=== PATIENT | male | born 1985 | race Caucasian/White ===

== ENCOUNTER 2017-06-01 12:05 | Emergency (ER) | payer SELFPAY ==
[2017-06-01] MEDS ORDERED: Famotidine 20 MG/2 ML SDV IVPUSH ONE (12:12)
[2017-06-01] MEDS ORDERED: Sodium Chloride 0.9% 10 ML Syringe FLUSH PRN (12:12)
[2017-06-01] MEDS ORDERED: Sodium Chloride 0.9% 1,000 ML IV ONE (12:12)
[2017-06-01] MEDS ORDERED: Sodium Chloride 0.9% 2.5 ML Syringe FLUSH PRN (12:12)
[2017-06-01] MEDS ORDERED: Aspirin 81 MG Tab.Chew PO ONE (12:12)
[2017-06-01] MEDS ORDERED: Nitroglycerin 0.4 MG Tab.SL SL ONE (12:12)
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
--- NOTE | 2017-06-01 13:01 | CR ---
EXAMINATION: Portable chest radiograph. HISTORY: Pain. FINDINGS: The trachea is midline. The cardiomediastinal silhouette is within normal limits. No pulmonary infilt rates, effusions or pneumothorax. Osseous structures appear unremarkable. IMPRESSION: No acute cardiopulmonary process.
[2017-06-01 13:02] LABS: CHLORIDE,CL 104 mmol/L (98-110); SODIUM,NA 138 mmol/L (136-146)
[2017-06-01] MEDS ORDERED: Nitroglycerin 0.4 MG Tab.SL SL PRN (13:09)
[2017-06-01 14:31] VITALS: BP 128/73
== END 2017-06-01 14:28 | disposition home or self-care (01) ==
LOC: MW.ED 12:05
DX: R07.89 Other chest pain (principal)
CPT/HCPCS: 36415; 71010; 80053; 84484; 85025; 93005; 96361; 96374; 99285; A9270; J7040; 99283

== ENCOUNTER 2018-03-04 14:25 | Emergency (ER) | payer SELFPAY ==
--- NOTE | 2018-03-04 14:46 | EDM.PDOC ---
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 Past medical history: As per history of present illness and as reviewed below otherwise noncontributory. Surgical history: As per history of present illness and as reviewed below otherwise noncontributory. Social history: No reported history of drug or alcohol abuse. Family history: As per history of present illness and as reviewed below otherwise noncontributory. Physical exam: Alert and oriented male answering questions appropriately in full sentences without any shortness of breath. Nontoxic in appearance. HEENT: Atraumatic, normocehpalic, pupils reactive, negative for conjunctival pallor or scleral icterus, mucous membranes moist, throat clear, neck supple, nontender, trachea midline. Tonsils are erythematous and large Lungs: Clear to auscultation, breath sounds equal bilaterally, chest non tender. Heart: S1S2, regular, negative for clicks, rubs, or JVD. Abdomen: Soft, nondistended, nontender. Negative for masses or hepatossplenmegaly. Negative for costovertebral tenderness. Pelvis: Stable nontender. Genitourinary: Deferred. Rectal: Deferred Extremities: Atraumatic, negative for cords or calf pain. Neurovascular unremarkable. Neuro: Awake, alert, oriented. Cranial nerves II through XII unremarkable. Cerebellum unremarkable. Motor and sensory unremarkable throughout. Exam nonfocal. Discussed the negative x-ray CBC CMP strep have been reviewed. he was asking why he's been coughing for the last 4 years. Offer of Tessalon Perles and Medrol Dosepak was denied by patient. He is upset that no reason was found for his cough. Patient states that he will go to [place] to be seen Diagnostics: []Chest x-ray CBC CMP strep Therapeutics: []duoneb Impression: []Cough Shortness breath Plan: []The discharge Definitive disposition and diagnosis as appropriate pending reevaluation and review of above. Onset: Gradual Duration: Chronic Location: Reports: Neck, Chest Quality: Reports: Ache Severity: Moderate Improves with: Reports: None Worsens with: Reports: None Middle Back Pain Score (Numeric/FACES): 4 - Related Data Allergies Allergy/AdvReac Type Severity Reaction Status Date / Time No Known Allergies Allergy Verified 03/04/18 14:47 Home Meds: Home Meds . [No Known Home Meds] 12/05/14 [History] Past Medical History - Past Health History Medical/Surgical History: Denies Medical/Surgical History Other Genitourinary History: Kidney failure Other Oncologic History: Breast Biopsy Social & Family History - Family History Family Medical History: Noncontributory ED ROS GENERAL - Review of Systems Review Of Systems: ROS reveals no pertinent complaints other than HPI. ED EXAM, GENERAL - Physical Exam Exam: See Below (see dictation) Course - Vital Signs Last Recorded V/S: Last Vital Signs Temp 36.3 C 03/04/18 14:43 Pulse 99 03/04/18 14:43 Resp 18 03/04/18 14:43 BP 148/96 H 03/04/18 14:43 Pulse Ox 97 03/04/18 14:43 - Orders/Labs/Meds Orders: Active Orders 24 hr Category Date Time Status RT Aerosol Therapy [RC] ASDIRECTED Care 03/04/18 14:56 Active Chest 2V [CR] Stat Exams 03/04/18 14:46 Taken Labs: Laboratory Tests 03/04/18 03/04/18 Range/Units 14:55 14:55 WBC 7.21 (4.0-11.0) K/uL RBC 5.24 (4.50-5.90) M/uL Hgb 16.3 (13.0-17.0) g/dL Hct 46.3 (38.0-50.0) % MCV 88.4 (80.0-98.0) fL MCH 31.1 (27.0-32.0) pg MCHC 35.2 (31.0-37.0) g/dL RDW Std Deviation 40.2 (28.0-62.0) fl RDW Coeff of [place] 13 (11.0-15.0) % Plt Count 298 (150-400) K/uL MPV 10.00 (7.40-12.00) fL Neut % (Auto) 56.0 (48.0-80.0) % Lymph % (Auto) 27.5 (16.0-40.0) % [place] % (Auto) 10.5 (0.0-15.0) % Eos % (Auto) 4.9 (0.0-7.0) % Baso % (Auto) 1.1 (0.0-1.5) % Neut # (Auto) 4.0 (1.4-5.7) K/uL Lymph # (Auto) 2.0 (0.6-2.4) K/uL [place] # (Auto) 0.8 (0.0-0.8) K/uL Eos # (Auto) 0.4 (0.0-0.7) K/uL Baso # (Auto) 0.1 (0.0-0.1) K/uL Nucleated RBC % 0.0 /100WBC Nucleated RBCs # 0 K/uL Sodium 135 L (136-148) mmol/L Potassium 3.9 (3.5-5.1) mmol/L Chloride 101 (98-107) mmol/L Carbon Dioxide 29.3 (21.0-32.0) mmol/L BUN 17 (7.0-18.0) mg/dL Creatinine 1.2 (0.8-1.3) mg/dL Est Cr Clr Drug Dosing 88.38 mL/min Estimated GFR (MDRD) > 60.0 ml/min Glucose 97 (74-106) mg/dL Calcium 9.1 (8.5-10.1) mg/dL Total Bilirubin 0.5 (0.2-1.0) mg/dL AST 27 (15-37) IU/L ALT 55 (14-63) IU/L Alkaline Phosphatase 59 (46-116) U/L Total Protein 7.7 (6.4-8.2) g/dL Albumin 3.9 (3.4-5.0) g/dL Globulin 3.8 H (2.0-3.5) g/dL Albumin/Globulin Ratio 1.0 L (1.3-2.8) Meds: Medications Discontinued Medications Generic Name Dose Route Start Last Admin Trade Name Freq PRN Reason Stop Dose Admin Albuterol/Ipratropium 3 ml 03/04/18 14:56 03/04/18 15:46 Duoneb 3.0-0.5 Mg/3 Ml NEB 03/04/18 14:57 3 ml ONETIME ONE Administration Departure - Departure Time of Disposition: 16:11 Disposition: Home, Self-Care 01 Condition: Good Clinical Impression: Cough - Discharge Information Instructions: Shortness of Breath, Adult, [id number], Cough, Adult, Easy-to- Read Referrals: PCP,None [Primary Care Provider] - Forms: ED Department Discharge - My Orders Last 24 Hours: My Active Orders 03/04/18 14:46 Chest 2V [CR] Stat 03/04/18 14:56 RT Aerosol Therapy [RC] ASDIRECTED - Assessment/Plan Last 24 Hours: My Active Orders 03/04/18 14:46 Chest 2V [CR] Stat 03/04/18 14:56 RT Aerosol Therapy [RC] ASDIRECTED
[2018-03-04 14:47] VITALS: BP 148/96
[2018-03-04] MEDS ORDERED: Albuterol/Ipratropium 3.0-0.5 MG/3 ML Neb Soln NEB ONE (14:56)
[2018-03-04 15:48] LABS: CHLORIDE,CL 101 mmol/L (98-107); SODIUM,NA 135 mmol/L (136-148)
--- NOTE | 2018-03-04 16:50 | CR ---
EXAM DATE: 03/04/18 PATIENT'S AGE: 32 Patient: RENE ALFRED Facility: [place], [place] Site . Site : 1985 Study: XRay Chest [id number]/04/2018 3:29:17 PM Ordering Physician: Doctor Grossman Final Report: INDICATION: Shortness of breath, cough TECHNIQUE: Chest radiograph COMPARISON: 06/01/2017 FINDINGS: Mediastinum: The mediastinum is normal in appearance. The heart silhouette is normal in size and morphology. Lung: Both lungs are unremarkable in appearance. No sign of pleural effusion seen. No pneumothorax is identified. Musculoskeletal: Unremarkable for age. IMPRESSION: 1. No acute cardiopulmonary disease is seen. Dictated by: Chago Garcia MD @ 03/04/2018 16:02:43 (Electronic Signature) Report Signed by Proxy. [facility]
== END 2018-03-04 16:30 | disposition home or self-care (01) ==
LOC: MW.ED 14:25
DX: R06.02 Shortness of breath (principal); R05 Cough
CPT/HCPCS: 36415; 71046; 71046-26; 80053; 85025; 94640; 99282; 99285-25; J7620-GY

== ENCOUNTER 2023-01-09 15:22 | Emergency (ER) | payer MEDICAID ==
[2023-01-09] MEDS ORDERED: Sodium Chloride 0.9% 1,000 ML IV ONE (15:36)
[2023-01-09] MEDS ORDERED: LORazepam 2 MG/ML SDV IVPUSH ONE (15:36)
[2023-01-09 15:55] LABS: BASOPHILS ABSOLUTE AUTO 0.1 K/uL (0.0-0.1); BASOPHILS PERCENT AUTO 0.6 % (0.0-1.5); EOSINOPHILS ABSOLUTE AUTO 0.4 K/uL (0.0-0.7); EOSINOPHILS PERCENT AUTO 5.1 % (0.0-7.0); HEMATOCRIT 47.5 % (38.0-50.0); HEMOGLOBIN 16.3 g/dL (13.0-17.0); LYMPHOCYTES ABSOLUTE AUTO 2.6 K/uL (0.6-2.4); LYMPHOCYTES PERCENT AUTO 31.3 % (16.0-40.0); MEAN CORPUSCULAR HEMOGLOBIN 30.9 pg (27.0-32.0); MEAN CORPUSCULAR HGB CONC 34.3 g/dL (31.0-37.0); MEAN CORPUSCULAR VOLUME 90.1 fL (80.0-98.0); MONOCYTES ABSOLUTE AUTO 0.8 K/uL (0.0-0.8); MONOCYTES PERCENT AUTO 9.7 % (0.0-15.0); NEUTROPHILS ABSOLUTE AUTO 4.5 K/uL (1.4-5.7); NEUTROPHILS PERCENT AUTO 53.3 % (48.0-80.0); NRBC ABSOLUTE 0 K/uL; PLATELET COUNT,PLT 283 K/uL (150-400); RED BLOOD CELL COUNT 5.27 M/uL (4.50-5.90); WHITE BLOOD CELL COUNT,WBC 8.44 K/uL (4.0-11.0)
[2023-01-09] MEDS ORDERED: Metoprolol Tartrate 5 MG/5 ML SDV IVPUSH ONE (16:10)
[2023-01-09 16:23] LABS: INR 0.96 (0.86-1.11); PTT,PARTIAL THROMBOPLSTIN TIME 26.2 SEC (23.9-30.7)
[2023-01-09 16:24] LABS: D-DIMER QUANTITATIVE < 0.19 mg/L FEU (0.00-0.50)
[2023-01-09 16:34] LABS: ALANINE AMINOTRANSFERASE,ALT 53 IU/L (14-63); ALBUMIN 4.1 g/dL (3.4-5.0); ALKALINE PHOSPHATASE 54 U/L (46-116); ASPARTATE AMNIOTRANSFERASE,AST 49 IU/L (15-37); BILIRUBIN TOTAL 0.6 mg/dL (0.2-1.0); BLOOD UREA NITROGEN,BUN 18 mg/dL (7.0-18.0); CALCIUM 9.1 mg/dL (8.5-10.1); CARBON DIOXIDE,CO2 25.7 mmol/L (21.0-32.0); CHLORIDE,CL 101 mmol/L (98-107); CREATININE 1.2 mg/dL (0.8-1.3); EST CRCL DRUG DOSING (CG) 81.54 mL/min; GLUCOSE RANDOM 111 mg/dL (74-106); MAGNESIUM 1.8 mg/dL (1.8-2.4); PROTEIN TOTAL,TP 8.3 g/dL (6.4-8.2); SODIUM,NA 139 mmol/L (136-148); TSH ULTRASENSITIVE 1.47 uIU/mL (0.36-3.74)
[2023-01-09 16:35] LABS: ESTIMATED GFR 80 mL/min (>60); ETHANOL BLOOD MEDICAL < 3.0 mg/dL
[2023-01-09] MEDS ORDERED: chlordiazePOXIDE 25 MG Cap PO ONE (17:00)
[2023-01-09 17:07] VITALS: BP 167/97; PULSE 92
== END 2023-01-09 17:24 | disposition home or self-care (01) ==
LOC: MW.ED 15:22
DX: R00.0 Tachycardia, unspecified (principal); I10 Essential (primary) hypertension
CPT/HCPCS: 36415; 71045; 73110; 80053; 80307; 83735; 84443; 84484; 85025; 85379; 85610; 85730; 93005; 96361; 96374; 96375; 99285; A9270; J2060; J3490; J7030; 93010; 99284